=== PATIENT | male | born 2000 | race Caucasian/White ===

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

== ENCOUNTER 2021-07-14 15:01 | Emergency (ER) | payer BC ==
[2021-07-14] MEDS ORDERED: HYDROmorphone 1 MG/ML CARPUJECT IVP STA ×3 (15:12→18:36)
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
--- NOTE | 2021-07-14 15:44 | XRAY Report ---
PROCEDURE: Wrist 4 View BILAT INDICATIONS: Trauma TECHNIQUE: 4 views of the wrist were acquired. COMPARISON: None FINDINGS: Bones: There is a comminuted, impacted distal radius fracture, with prominent dorsal angulation of th e fracture fragments. There is intra-articular involvement seen. There is no radiocarpal dislocation. There is a mildly displaced, comminuted ulnar sided fracture. Soft tissues: No suspicious soft tissue calcifications. IMPRESSION: Comminuted, displaced, dorsally angulated, impacted distal radius fracture, with intra-articular invo lvement. A mildly comminuted ulnar side fracture is also seen. Reviewed by: Anish Rodas MD on 07/14/2021 2:43 PM [facility]I Approved by: Anish Rodas MD on 07/14/2021 2:43 PM GERI Station ID: [id number]
[2021-07-14] MEDS ORDERED: SODIUM CHLORIDE 0.9% 1,000 ML IV STA (17:24)
[2021-07-14] MEDS ORDERED: PROPOFOL 200 MG/20 ML VIAL IVP STA (17:24)
[2021-07-14] MEDS ORDERED: oxyCODONE/ACET 5/325 Prepack 4 PO STA (18:36)
--- NOTE | 2021-07-14 18:50 | XRAY Report ---
PROCEDURE: Wrist 2 View BILAT INDICATIONS: post reduction TECHNIQUE: 2 views of each wrist were acquired. COMPARISON: Bilateral wrist radiographs from earlier the same day. FINDINGS: Bones: Fiberglas splint material is seen overlying each wrist, which obscures fine bony detail. Post reduction images demonstrate improved alignment of the previously seen comminuted intra-articular fra cture of the left distal radius. Carpal alignment is also improved. Alignment of the right comminuted intra-articular distal radial fracture appears minimally improved. A mildly displaced ulnar styloid fractures also noted on the right. Soft tissues: No suspicious soft tissue calcifications. IMPRESSION: 1. Postreduction images demonstrate improved alignment of the previously seen comminuted intra-artic ular left distal radial fracture. 2. Postreduction images of the more comminuted, impacted, intra-articular right distal radial fractu re demonstrate minimal improvement in alignment. Mildly displaced right ulnar styloid fracture is red emonstrated. Reviewed by: Rustam Moya MD on 07/14/2021 6:49 PM PDT Approved by: Rustam Moya MD on 07/14/2021 6:49 PM PDT Station ID: [id number]
[2021-07-14 19:08] VITALS: BP 150/60
== END 2021-07-14 19:09 | disposition home or self-care (01) ==
LOC: ED 15:01
DX: S52.572A Other intraarticular fracture of lower end of left radius, initial encounter for closed fracture (principal); S52.571A Other intraarticular fracture of lower end of right radius, initial encounter for closed fracture; V86.56XA Driver of dirt bike or motor/cross bike injured in nontraffic accident, initial encounter
CPT/HCPCS: 25605; 73100; 73110; 96374; 96376; 99152; 99153; 99284; 99285; J1170; 94770